=== PATIENT | male | born 1985 | race Caucasian/White ===

== ENCOUNTER 2021-03-15 11:04 | Emergency (ER) | payer OTHER ==
[2021-03-15 11:09] VITALS: TEMP 98; BMI 30.2
[2021-03-15] MEDS ORDERED: ACETAMINOPHEN 1000 MG/100 ML BAG IVPB ONE (12:23)
[2021-03-15] MEDS ORDERED: ACETAMINOPHEN INJECTION 100 ML IVPB ONE (12:38)
[2021-03-15 13:30] VITALS: BP 162/108; PULSE 82
== END 2021-03-15 13:30 | disposition short-term general hospital (02) ==
LOC: JER 11:04
PROC: 3E033GC Introduction of Other Therapeutic Substance into Peripheral Vein, Percutaneous Approach (ICD-10-PCS; principal; 2021-03-15)
DX: T33.531A Superficial frostbite of right finger(s), initial encounter (principal); T33.532A Superficial frostbite of left finger(s), initial encounter; W00.9XXA Unspecified fall due to ice and snow, initial encounter
CPT/HCPCS: 96374; 99284-25; J0131

== ENCOUNTER 2022-09-13 19:33 | Emergency (ER) | payer OTHER ==
[2022-09-13 19:51] VITALS: TEMP 98.4; BMI 30.9
[2022-09-13] MEDS ORDERED: ACETAMINOPHEN 1000 MG/100 ML BAG IVPB ONE (21:00)
[2022-09-13] MEDS ORDERED: LACTATED RINGERS SOLUTION 1,000 ML/1,000 ML INFUS.BAG IV SCH (21:00)
[2022-09-13] MEDS ORDERED: METOCLOPRAMIDE HCL INJECTION 10 MG/2 ML VIAL IVPUSH ONE (21:00)
[2022-09-13] MEDS ORDERED: METOCLOPRAMIDE HCL INJECTION 10 MG/2 ML VIAL ONE (21:44)
[2022-09-13] MEDS ORDERED: ACETAMINOPHEN INJECTION 100 ML IVPB ONE (21:44)
[2022-09-13 22:11] LABS: BASO % 0.9 % (0-2.0); EOS % 1.6 % (0-4.5); HEMATOCRIT 45.1 % (35.4-49); HEMOGLOBIN 15.5 GM/dL (11.7-16.9); LYMPH % 39.8 % (8-40); MCH 31.3 pg (25.7-33.7); MCHC 34.5 g/dl (32.0-35.9); MEAN CELL VOLUME 90.7 fl (80-96); MEAN PLT VOLUME 8.5 fl (7.5-11.1); NEUT % 50.7 % (42.8-82.8); PLATELET COUNT 203 10^3/uL (134-434); RBC 4.97 M/mm3 (4.00-5.60); RDW 13.1 % (11.9-15.9); WHITE BLOOD COUNT 6.9 K/mm3 (4.0-10.0)
[2022-09-13 22:43] LABS: POTASSIUM 3.5 mmol/L (3.5-5.1)
[2022-09-13 22:45] LABS: ALBUMIN 3.7 g/dl (3.4-5.0); BLOOD UREA NITROGEN 10.1 mg/dL (7-18); CALCIUM 8.4 mg/dL (8.5-10.1)
[2022-09-13 22:50] LABS: BILIRUBIN,TOTAL 0.4 mg/dL (0.2-1); TOT PROT 7.1 g/dl (6.4-8.2)
[2022-09-13 23:11] VITALS: BP 152/90; PULSE 85; RESP 16
== END 2022-09-13 23:13 | disposition home or self-care (01) ==
LOC: JER 19:33
PROC: 3E033NZ Introduction of Analgesics, Hypnotics, Sedatives into Peripheral Vein, Percutaneous Approach (ICD-10-PCS; principal; 2022-09-13)
PROC: 3E033GC Introduction of Other Therapeutic Substance into Peripheral Vein, Percutaneous Approach (ICD-10-PCS; 2022-09-13)
DX: R51.9 Headache, unspecified (principal); R42 Dizziness and giddiness; R11.0 Nausea
CPT/HCPCS: 36415; 70450-TC; 80053; 85025; 99284-25

== ENCOUNTER 2024-02-26 22:14 | Emergency (ER) | payer OTHER ==
[2024-02-26 22:31] VITALS: BP 160/108; PULSE 87; RESP 20; TEMP 98.3; BMI 28.5
[2024-02-26] MEDS: DIPHTH,PERTUSS(ACELL),TET 0.5 ML DISP.SYRIN IM ONE (23:18)
[2024-02-26] MEDS ORDERED: ACETAMINOPHEN 325 MG TABLET (FP) ONE (23:20)
[2024-02-26] MEDS: ACETAMINOPHEN 325 MG TABLET (FP) PO ONE (23:43)
[2024-02-27 01:28] LABS: BASO % 0.9 % (0-2.0); HEMATOCRIT 49.6 % (35.4-49); HEMOGLOBIN 17.2 GM/dL (11.7-16.9); LYMPH % 42.6 % (8-40); MCHC 34.7 g/dl (32.0-35.9); MEAN CELL VOLUME 92.4 fl (80-96); MEAN PLT VOLUME 8.4 fl (7.5-11.1); NEUT % 48.5 % (42.8-82.8); PLATELET COUNT 202 10^3/uL (134-434); RBC 5.37 M/mm3 (4.00-5.60); WHITE BLOOD COUNT 6.9 K/mm3 (4.0-10.0)
[2024-02-27 01:40] LABS: POTASSIUM 4.3 mmol/L (3.5-5.1)
[2024-02-27 01:41] LABS: CALCIUM 10.3 mg/dL (8.5-10.1)
[2024-02-27 01:42] LABS: ALBUMIN 4.2 g/dl (3.4-5.0); BLOOD UREA NITROGEN 18.1 mg/dL (7-18)
[2024-02-27] MEDS ORDERED: FAMOTIDINE 20 MG/50 ML IVPB 20 MG/50 ML MG IVPB ONE (01:45)
[2024-02-27 01:46] LABS: CREATININE 1.1 mg/dL (0.55-1.3)
[2024-02-27 01:47] LABS: BILIRUBIN,TOTAL 0.5 mg/dL (0.2-1); TOT PROT 7.6 g/dl (6.4-8.2)
[2024-02-27] MEDS: FAMOTIDINE 20 MG/50 ML IVPB 20 MG/50 ML MG IVPB ONE (01:59)
[2024-02-27] MEDS ORDERED: BACITRACIN 0.9 GM PACKET ONE ×2 (04:30→05:32)
[2024-02-27] MEDS: BACITRACIN 0.9 GM PACKET TP ONE (05:41)
== END 2024-02-27 05:43 | disposition home or self-care (01) ==
LOC: JER 22:14
PROC: 0HC6XZZ Extirpation of Matter from Back Skin, External Approach (ICD-10-PCS; principal; 2024-02-26)
DX: S21.211A Laceration without foreign body of right back wall of thorax without penetration into thoracic cavity, initial encounter (principal); R10.9 Unspecified abdominal pain; W01.198A Fall on same level from slipping, tripping and stumbling with subsequent striking against other object, initial encounter
CPT/HCPCS: 36415; 74176-TC; 80053; 83690; 85025; 99284-25